=== PATIENT | male | born 1985 | race Caucasian/White ===

== ENCOUNTER 2018-06-20 01:05 | Inpatient (IN) | payer OTHER, SELFPAY ==
[~2018-06-20] VITALS: Ht 182.9 cm; Wt 98.7 kg
[~2018-06-20 01:05] MED LIST: MIDAZOLAM 1 MG/ML, 5ML ONE; ROCURONIUM 10 MG/ML,10ML ONE
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
[2018-06-20] MEDS ORDERED: LORazepam 2 MG/ML, 1ML ONE ×2 (01:20→01:52)
[2018-06-20] MEDS ORDERED: SODIUM CHLORIDE 0.9% 1,000ML IVBOLUS ONE ×2 (01:30→07:30)
[2018-06-20] MEDS ORDERED: LORazepam 2 MG/ML, 1ML IVPush ONE ×3 (01:30→02:00)
[2018-06-20 01:42] LABS: BASOPHILS # (AUTO) 0.05 x10^3/uL (0-0.1); BASOPHILS % (AUTO) 0 % (0-1); EOSINOPHILS # (AUTO) 0.11 x10^3/uL (0-0.4); EOSINOPHILS % (AUTO) 1 % (1-7); LYMPHOCYTES # (AUTO) 0.91 x10^3/uL (1-3.4); LYMPHOCYTES % (AUTO) 9 % (22-44); MD NO; MEAN CORPUSCULAR HEMOGLOBIN 32.8 pg (27.5-34.5); MEAN CORPUSCULAR HGB CONC 34.2 g/dL (33.2-36.2); MEAN CORPUSCULAR VOLUME 95.9 fL (81-97); MEAN PLATELET VOLUME 7.3 fL (7.4-10.4); MONOCYTES # (AUTO) 0.48 x10^3/uL (0.2-0.8); MONOCYTES % (AUTO) 5 % (2-9); NEUTROPHILS # (AUTO) 9.16 x10^3/uL (1.8-6.8); NEUTROPHILS % (AUTO) 86 % (42-75); PLATELET COUNT 329 x10^3/uL (130-400); RED BLOOD COUNT 4.42 x10^6/uL (4.38-5.82)
[2018-06-20 01:55] LABS: ALANINE AMINOTRANSFERASE 24 U/L (12-78); ALBUMIN 4.3 g/dL (3.4-5.0); ANION GAP 8 mmol/L (5-15); CALCIUM 8.7 mg/dL (8.5-10.1); CHLORIDE 109 mmol/L (98-107); CREATININE 1.28 mg/dL (0.7-1.3)
--- NOTE | 2018-06-20 01:55 | NUR ---
PT MEDICATED PER MAY. PT CONTINUES TO TWITCH CONSTANTLY AND NOT RESPOND TO VERBAL STIMULI
[2018-06-20 01:56] LABS: SALICYLATE LEVEL < 1.7 mg/dL (2.8-20.0)
[2018-06-20 01:57] LABS: ACETAMINOPHEN < 2 mcg/mL (10-30); ALKALINE PHOSPHATASE 72 U/L (45-117); BILIRUBIN,TOTAL 0.3 mg/dL (0.2-1.0); TOTAL PROTEIN 7.5 g/dL (6.4-8.2)
--- NOTE | 2018-06-20 02:14 | NUR ---
Girlfriends contact info, Kylee Duque [phone]
[2018-06-20] MEDS ORDERED: MIDAZOLAM 1 MG/ML, 2ML IVPush ONE (02:30)
[2018-06-20] MEDS ORDERED: ROCURONIUM 10 MG/ML,10ML IVPush ONE (02:30)
[2018-06-20] MEDS ORDERED: FENTANYL PF 100 MCG/2ML IV PRN (02:30)
[2018-06-20] MEDS: MIDAZOLAM HCL 25 MG in SODIUM CHLORIDE 0.9% 245 ML IV PRN ×3 (02:53→11:28)
[2018-06-20] MEDS ORDERED: PHARMACY MAY ADJ FOR RENAL FX MC SCH ×2 (03:00→07:30)
[2018-06-20] MEDS ORDERED: LIDOCAINE-MPF 1%, 2ML ENDO PRN ×2 (03:00→07:30)
[2018-06-20] MEDS ORDERED: LACTULOSE 20 GM/30 ML UDC NG PRN ×2 (03:00→07:30)
[2018-06-20] MEDS ORDERED: DEXTROSE 4 GM TAB.CHEW PO PRN (03:00)
[2018-06-20] MEDS ORDERED: SENNA 176 MG/5 ML ORAL SOL NG PRN ×2 (03:00→07:30)
[2018-06-20] MEDS ORDERED: BISACODYL 10 MG SUPP PR PRN ×2 (03:00→07:30)
[2018-06-20] MEDS ORDERED: GLUCAGON 1 MG IM PRN ×2 (03:00→07:30)
[2018-06-20] MEDS ORDERED: DEXTROSE 50%, 50ML SYRINGE IVPush PRN ×2 (03:00→07:30)
[2018-06-20] MEDS ORDERED: SENNA/DOCUSATE TABLET NG PRN ×2 (03:00→07:30)
--- NOTE | 2018-06-20 03:25 | NUR ---
PT TOLERATED INTUBATION WELL. PT WAS TAKEN TO CT BY THIS RN AND RT. BACK FROM CT WITHOUT INCIDENT. [facility] HAS SEEN THE PT.
[2018-06-20 03:37] LABS: AMPHETAMINE SCREEN, URINE Positive (Negative); BARBITURATE SCREEN, URINE Negative (Negative); BENZODIAZEPINE SCREEN, URINE Positive (Negative); CANNABINOID SCREEN, URINE Positive (Negative); COCAINE SCREEN, URINE Negative (Negative); METHADONE SCREEN, URINE Negative (Negative); OPIATE SCREEN, URINE Positive (Negative)
[2018-06-20 04:38] VITALS: BP 137/94
[2018-06-20] MEDS: INSULIN LISPRO 100 UNITS/ML, PEN SQ-INSULIN SCH ×4 (06:21→19:30)
[2018-06-20] MEDS ORDERED: FENTANYL PF 100 MCG/2ML IVPush PRN (07:30)
[2018-06-20] MEDS: ALBUTEROL/IPRATROPIUM 2.5MG/0.5MG, 3 ML INLINE SCH ×2 (07:30→11:30)
[2018-06-20] MEDS ORDERED: INSULIN LISPRO 100 UNITS/ML, PEN SQ-INSULIN SCH (07:30)
[2018-06-20] MEDS ORDERED: LEVETIRACETAM 1,000 MG in SODIUM CHLORIDE 0.9% 100 ML IV SCH (08:30)
[2018-06-20] MEDS: ENOXAPARIN 40 MG/0.4 ML SQ SCH (09:18)
[2018-06-20] MEDS: FAMOTIDINE 20 MG/2 ML IV SCH ×2 (09:19→19:26)
[2018-06-20] MEDS: SODIUM CHLORIDE FLUSH 10ML SYR IVF SCH ×4 (09:19→21:43)
[2018-06-20] MEDS: LEVETIRACETAM 1,000 MG in SODIUM CHLORIDE 0.9% 100 ML IV SCH ×2 (10:18→21:42)
[2018-06-20] MEDS ORDERED: PHENYTOIN SODIUM 1,000 MG in SODIUM CHLORIDE 0.9% 100 ML IV ONE (13:00)
[2018-06-20] MEDS ORDERED: FILTER 0.22 MICRON IV ONE (13:00)
[2018-06-20] MEDS: MIDAZOLAM HCL 50 MG in SODIUM CHLORIDE 0.9% 240 ML IV PRN ×2 (15:10→21:46)
[2018-06-20] MEDS: SODIUM CHLORIDE 0.9% 1,000 ML IV SCH (15:56)
[2018-06-20] MEDS ORDERED: ALBUTEROL/IPRATROPIUM 2.5MG/0.5MG, 3 ML INLINE PRN (16:00)
[2018-06-21] MEDS: INSULIN LISPRO 100 UNITS/ML, PEN SQ-INSULIN SCH ×3 (01:00→13:00)
[2018-06-21] MEDS: MIDAZOLAM HCL 50 MG in SODIUM CHLORIDE 0.9% 240 ML IV PRN ×2 (02:57→07:55)
[2018-06-21] MEDS: SODIUM CHLORIDE 0.9% 1,000 ML IV SCH ×2 (03:09→16:00)
[2018-06-21 04:00] VITALS: BP 139/98
[2018-06-21 04:45] LABS: BASOPHILS # (AUTO) 0.01 x10^3/uL (0-0.1); BASOPHILS % (AUTO) 0 % (0-1); EOSINOPHILS # (AUTO) 0.01 x10^3/uL (0-0.4); EOSINOPHILS % (AUTO) 0 % (1-7); LYMPHOCYTES # (AUTO) 0.58 x10^3/uL (1-3.4); LYMPHOCYTES % (AUTO) 6 % (22-44); MD NO; MEAN CORPUSCULAR HEMOGLOBIN 32.5 pg (27.5-34.5); MEAN CORPUSCULAR HGB CONC 33.6 g/dL (33.2-36.2); MEAN CORPUSCULAR VOLUME 96.9 fL (81-97); MEAN PLATELET VOLUME 7.6 fL (7.4-10.4); MONOCYTES # (AUTO) 0.93 x10^3/uL (0.2-0.8); MONOCYTES % (AUTO) 9 % (2-9); NEUTROPHILS # (AUTO) 8.74 x10^3/uL (1.8-6.8); NEUTROPHILS % (AUTO) 85 % (42-75); PLATELET COUNT 208 x10^3/uL (130-400); RED BLOOD COUNT 3.83 x10^6/uL (4.38-5.82); RED CELL DISTRIBUTION WIDTH 13.5 % (9.4-14.8)
[2018-06-21 04:52] LABS: ALBUMIN 3.4 g/dL (3.4-5.0); ANION GAP 5 mmol/L (5-15); CALCIUM 8.1 mg/dL (8.5-10.1); CHLORIDE 112 mmol/L (98-107)
[2018-06-21 04:56] LABS: ALANINE AMINOTRANSFERASE 18 U/L (12-78); ALKALINE PHOSPHATASE 56 U/L (45-117); BILIRUBIN,TOTAL 0.9 mg/dL (0.2-1.0); CREATININE 0.74 mg/dL (0.7-1.3)
[2018-06-21] MEDS ORDERED: LABETALOL 5MG/ML, 20ML IVPush PRN (05:30)
[2018-06-21] MEDS ORDERED: LABETALOL 5 MG/ML SYRINGE IVPush PRN (05:30)
[2018-06-21] MEDS: FAMOTIDINE 20 MG/2 ML IV SCH (06:28)
[2018-06-21] MEDS: ENOXAPARIN 40 MG/0.4 ML SQ SCH (09:33)
[2018-06-21] MEDS: SODIUM CHLORIDE FLUSH 10ML SYR IVF SCH ×4 (09:33→21:12)
[2018-06-21] MEDS: LEVETIRACETAM 1,000 MG in SODIUM CHLORIDE 0.9% 100 ML IV SCH ×2 (10:11→21:11)
[2018-06-21 17:56] VITALS: BP 166/101
[2018-06-21 20:16] VITALS: BP 148/87
[2018-06-22 00:30] VITALS: BP 134/91
[2018-06-22 07:58] VITALS: BP 132/80
[2018-06-22] MEDS: SODIUM CHLORIDE FLUSH 10ML SYR IVF SCH ×3 (09:00→20:34)
[2018-06-22] MEDS: LEVETIRACETAM 1,000 MG in SODIUM CHLORIDE 0.9% 100 ML IV SCH ×2 (09:49→20:34)
[2018-06-22] MEDS: ENOXAPARIN 40 MG/0.4 ML SQ SCH (09:49)
[2018-06-22] MEDS ORDERED: SENNA/DOCUSATE TABLET PO SCH (14:30)
[2018-06-22] MEDS ORDERED: POLYETHYLENE GLYCOL 17 GM PACKET PO PRN (14:30)
[2018-06-22 15:04] VITALS: BP 117/73
[2018-06-22 18:45] VITALS: BP 126/72
[2018-06-23 01:23] VITALS: BP 110/75
== END 2018-06-23 06:06 | disposition left against medical advice (07) | DRG 917 ==
LOC: ED 01:20 → EDIP 02:48 → CCU 03:56 → 4EST 06-21 18:02
PROVIDERS: ADMIT Internal Medicine; ATTEND Internal Medicine
PROC: 0BH17EZ Insertion of Endotracheal Airway into Trachea, Via Natural or Artificial Opening (ICD-10-PCS; principal; 2018-06-20)
PROC: 5A1945Z Respiratory Ventilation, 24-96 Consecutive Hours (ICD-10-PCS; 2018-06-20)
DX: T43.621A Poisoning by amphetamines, accidental (unintentional), initial encounter (principal); G92 Toxic encephalopathy; J96.00 Acute respiratory failure, unspecified whether with hypoxia or hypercapnia; Z99.11 Dependence on respirator [ventilator] status; I16.1 Hypertensive emergency; E87.0 Hyperosmolality and hypernatremia; N17.9 Acute kidney failure, unspecified; F15.10 Other stimulant abuse, uncomplicated; I10 Essential (primary) hypertension; Z53.21 Procedure and treatment not carried out due to patient leaving prior to being seen by health care provider; Y92.89 Other specified places as the place of occurrence of the external cause
CPT/HCPCS: 36415; 36600; 70450; 71045; 74018; 80053; 80307; 80329; 82550; 82803; 82962; 83735; 84478; 85025; 87070; 87081; 87205; 93005; 94002; 94003; 95819; 99291; G0378; J1165; J1650; J1953; J2250; J7620; G0480; J2060; J3490; J7030; J7050

== ENCOUNTER 2018-07-03 01:48 | Emergency (ER) | payer OTHER ==
[~2018-07-03] VITALS: Ht 182.9 cm; Wt 97.8 kg
[2018-07-03 02:02] VITALS: BP 129/78
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
--- NOTE | 2018-07-03 02:18 | NUR ---
TO RECHECK PT. PT UPSET AT CONVERSATION. ATTEMPTED TO EDUCATE PT. PT REFUSES. PT LEFT THROUGH D/C W/ STEADY GAIT.
[2018-07-03] MEDS ORDERED: ACETAMINOPHEN 500 MG TABLET PO ONE (02:30)
== END 2018-07-03 02:21 | disposition left against medical advice (07) ==
LOC: ED 02:15
DX: J02.9 Acute pharyngitis, unspecified (principal); R05 Cough; R06.02 Shortness of breath; F17.200 Nicotine dependence, unspecified, uncomplicated
CPT/HCPCS: 99281

== ENCOUNTER 2018-07-18 11:09 | Inpatient (IN) | payer OTHER ==
[~2018-07-18] VITALS: Ht 182.9 cm; Wt 95.3 kg
[2018-07-18] MEDS ORDERED: MORPHINE SULFATE 4 MG/ML, 1ML ONE ×2 (11:11→11:47)
[2018-07-18] MEDS ORDERED: ONDANSETRON 2MG/ML, 2ML ONE ×2 (11:12→18:54)
[2018-07-18] MEDS: MORPHINE SULFATE 4 MG/ML, 1ML IVPush PRN ×2 (11:13→11:49)
[2018-07-18] MEDS ORDERED: LIDOCAINE-MPF 1%, 5ML ONE (11:14)
--- NOTE | 2018-07-18 11:27 | NUR ---
JJ PAC AT BEDSIDE FOR DIGITAL BLOCK.
[2018-07-18] MEDS ORDERED: LIDOCAINE 1%, 20ML INFIL ONE (11:30)
[2018-07-18] MEDS ORDERED: ONDANSETRON 2MG/ML, 2ML IVPush ONE (11:30)
[2018-07-18] MEDS ORDERED: DIPH,PERTUSS(ACELL),TET VAC/PF 0.5 ML IM-VACC ONE ×2 (11:32→12:00)
--- NOTE | 2018-07-18 11:51 | NUR ---
PT REMEDICATED FOR PAIN. PAIN 05/26.
[2018-07-18] MEDS ORDERED: SODIUM CHLORIDE FLUSH 10ML SYR IVF ONE (12:00)
[2018-07-18] MEDS ORDERED: CEFAZOLIN PMX 1GM/50ML 50 ML ONE (12:09)
[2018-07-18] MEDS ORDERED: BUPIVACAINE 0.25% ONE (12:15)
[2018-07-18] MEDS ORDERED: CEFAZOLIN PMX 1GM/50ML 50 ML IV ONE (12:30)
--- NOTE | 2018-07-18 12:33 | NUR ---
BUPIVACAINE AT BEDSIDE FOR FURTHER CONTROL OF PAIN. WAITING ON PLASTICS.
--- NOTE | 2018-07-18 12:51 | NUR ---
JJ PAC WAS AT BEDSIDE AGAIN TO NUMB PT'S HAND. WAITING ON ORTHO CONSULT NOW. PAIN 05/26 AGAIN AFTER NUMBING AGENT.
--- NOTE | 2018-07-18 13:17 | NUR ---
FRIEND AT BEDSIDE. STILL WAITING ON ORHTO CONSULT.
[2018-07-18] MEDS ORDERED: MORPHINE SULFATE 4 MG/ML, 1ML IVPush PRN (14:00)
[2018-07-18] MEDS ORDERED: SODIUM CHLORIDE FLUSH 10ML SYR IVF PRN (14:00)
[2018-07-18 16:27] VITALS: BP 124/67
[2018-07-18] MEDS ORDERED: BUPIVACAINE/PF 0.25% ONE (17:56)
[2018-07-18] MEDS ORDERED: BUPIVACAINE/PF 0.5% ONE (17:56)
[2018-07-18] MEDS ORDERED: FENTANYL PF 250 MCG/5ML ONE (18:15)
[2018-07-18] MEDS ORDERED: hydrALAzine 20 MG/ML, 1ML IV PRN (18:30)
[2018-07-18] MEDS ORDERED: PROCHLORPERAZINE 5 MG/ML, 2ML IV PRN (18:30)
[2018-07-18] MEDS ORDERED: HALOPERIDOL 5 MG/ML IV PRN (18:30)
[2018-07-18] MEDS ORDERED: LABETALOL 5MG/ML, 20ML IV PRN (18:30)
[2018-07-18] MEDS ORDERED: DIPHENHYDRAMINE 50 MG/ML, 1ML IVPush PRN (18:30)
[2018-07-18] MEDS ORDERED: MEPERIDINE/PF 25MG/0.5ML IVPush PRN (18:30)
[2018-07-18] MEDS ORDERED: HYDROmorphone 2 MG/ML, 1ML IVPush PRN (18:30)
[2018-07-18] MEDS ORDERED: FENTANYL PF 100 MCG/2ML IV PRN (18:30)
[2018-07-18] MEDS ORDERED: PROMETHAZINE 25 MG/ML, 1ML IV PRN (18:30)
[2018-07-18] MEDS ORDERED: METOPROLOL 1 MG/ML, 5ML IV PRN (18:30)
[2018-07-18] MEDS ORDERED: OXYcodone 5 MG/5 ML ORAL.SOL UDC PO PRN (18:30)
[2018-07-18] MEDS ORDERED: PROPOFOL 10 MG/ML, 20ML ONE (18:54)
[2018-07-18] MEDS ORDERED: DEXAMETHASONE 4 MG/ML, 1ML ONE (18:54)
[2018-07-18] MEDS ORDERED: CEFAZOLIN 1,000 MG ONE (18:54)
[2018-07-18] MEDS ORDERED: FENTANYL PF 100 MCG/2ML ONE (19:19)
[2018-07-18] MEDS ORDERED: HYDROmorphone 2 MG/ML, 1ML ONE (19:19)
[2018-07-18] MEDS ORDERED: OXYcodone 5 MG/5 ML ORAL.SOL UDC ONE (19:26)
[2018-07-18 20:39] VITALS: BP 104/70
[2018-07-18] MEDS ORDERED: HYDROcodone/APAP 10/325 MG TABLET PO PRN (21:00)
[2018-07-18] MEDS ORDERED: morphine SULFATE 10 MG/ML, 1ML IV PRN (21:00)
[2018-07-18] MEDS ORDERED: ONDANSETRON 2MG/ML, 2ML IV PRN (21:00)
[2018-07-18] MEDS: KETOROLAC 30 MG/1 ML IV SCH (23:52)
[2018-07-18] MEDS: SODIUM CHLORIDE FLUSH 10ML SYR IVF SCH (23:53)
[2018-07-19] MEDS: CEFAZOLIN PMX 2GM/50ML 50 ML IVPB SCH ×2 (02:20→10:16)
[2018-07-19 02:55] VITALS: BP 106/64
[2018-07-19] MEDS: KETOROLAC 30 MG/1 ML IV SCH ×2 (03:57→13:00)
[2018-07-19 06:51] VITALS: BP 129/81
[2018-07-19] MEDS: SODIUM CHLORIDE FLUSH 10ML SYR IVF SCH (09:00)
[2018-07-19] MEDS: OXYcodone/APAP 5/325MG TABLET PO PRN ×2 (12:55→13:31)
[2018-07-19 13:06] VITALS: BP 121/88
[2018-07-20] MEDS ORDERED: CEPH-368 PO (02:33)
[2018-07-20] MEDS ORDERED: HYDR-3237 PO (02:33)
== END 2018-07-19 14:10 | disposition home or self-care (01) | DRG 517 ==
LOC: EDBD 11:09 → MERGE 11:09 → ED 13:39 → EDIP 13:40 → ED 13:52 → 4NOR 14:20 → DCLOUNGE 07-19 14:00
PROVIDERS: ADMIT Orthopaedic Surgery; ATTEND Orthopaedic Surgery
PROC: 0PBT0ZZ Excision of Right Finger Phalanx, Open Approach (ICD-10-PCS; 2018-07-18)
PROC: 3E0T3BZ Introduction of Anesthetic Agent into Peripheral Nerves and Plexi, Percutaneous Approach (ICD-10-PCS; principal; 2018-07-18 18:15)
DX: S62.630B Displaced fracture of distal phalanx of right index finger, initial encounter for open fracture (principal); S62.602B Fracture of unspecified phalanx of right middle finger, initial encounter for open fracture; F17.200 Nicotine dependence, unspecified, uncomplicated; F19.90 Other psychoactive substance use, unspecified, uncomplicated; Z88.5 Allergy status to narcotic agent; W28.XXXA Contact with powered lawn mower, initial encounter; Y93.89 Activity, other specified; Y92.89 Other specified places as the place of occurrence of the external cause
CPT/HCPCS: 73130; J3490; 90715; G0378; J0690; J1100; J1885; J2405; J2704; J3010

== ENCOUNTER 2018-07-20 01:49 | Emergency (ER) | payer SELFPAY ==
[~2018-07-20] VITALS: Ht 182.9 cm; Wt 100.6 kg
[2018-07-20] MEDS ORDERED: CEPH-368 PO (02:33)
[2018-07-20] MEDS ORDERED: HYDR-3237 PO (02:33)
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
[2018-07-20 02:34] VITALS: BP 130/89
[2018-07-20] MEDS ORDERED: ONDANSETRON ODT 4 MG ONE (02:54)
[2018-07-20] MEDS ORDERED: HYDROcodone/APAP 5/325 TABLET ONE (02:54)
--- NOTE | 2018-07-20 02:58 | NUR ---
pt medicated per mar
[2018-07-20] MEDS ORDERED: ONDANSETRON ODT 8 MG PO ONE (03:00)
[2018-07-20] MEDS ORDERED: HYDROcodone/APAP 5/325 TABLET PO ONE (03:00)
== END 2018-07-20 03:39 | disposition home or self-care (01) ==
LOC: ED 03:27
DX: G89.18 Other acute postprocedural pain (principal); M79.641 Pain in right hand; F17.210 Nicotine dependence, cigarettes, uncomplicated
CPT/HCPCS: 99283; Q0162

== ENCOUNTER 2018-08-15 23:36 | Emergency (ER) | payer OTHER ==
[~2018-08-15] VITALS: Ht 182.9 cm; Wt 100.4 kg
[~2018-08-15 23:36] MED LIST changes: +CEPH-368 PO; +HYDR-3237 PO; -MIDAZOLAM 1 MG/ML, 5ML ONE; -ROCURONIUM 10 MG/ML,10ML ONE
[2018-08-15 23:37] VITALS: BP 119/82
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
[2018-08-16] MEDS ORDERED: OXYcodone/APAP 5/325MG TABLET ONE (00:29)
[2018-08-16] MEDS ORDERED: L.E.T SOLUTION TP ONE (00:30)
[2018-08-16] MEDS ORDERED: OXYcodone/APAP 5/325MG TABLET PO ONE (00:30)
[2018-08-16] MEDS ORDERED: LIDOCAINE 2%, 20ML SQ ONE (00:30)
[2018-08-16] MEDS ORDERED: LIDOCAINE-MPF 1%, 2ML ONE (00:33)
[2018-08-16] MEDS ORDERED: LIDOCAINE-MPF 1%, 5ML ONE (00:34)
--- NOTE | 2018-08-16 00:36 | NUR ---
PT MEDICATED PER EMAR FOR PAIN. PT'S AOX4. RESPS EVEN AND UNLABORED.
== END 2018-08-16 01:12 | disposition home or self-care (01) ==
LOC: ED 08-16 00:10
DX: L02.12 Furuncle of neck (principal); F17.200 Nicotine dependence, unspecified, uncomplicated; Z72.9 Problem related to lifestyle, unspecified; Z88.5 Allergy status to narcotic agent
CPT/HCPCS: 10060; 99283